=== PATIENT | female | born 1960 | race Caucasian/White ===

== ENCOUNTER 2017-07-20 06:09 | Emergency (ER) | payer OTHER ==
[~2017-07-20] VITALS: Ht 154.9 cm; Wt 49.0 kg
[~2017-07-20 06:09] MED LIST: ALEVE220 M1 PO; ALPRAZOLAM0.5 MG PO; ASPIR-LOW81 MG PO; CEPHALEXIN500 MG PO; CIPROFLOXACIN750 MG PO; IBUPROFEN600 MG PO; LEVAQUIN750 MG PO; NICOTINE PATCH1 EACH TD; NORCO 5-325 TA1 EACH PO; OXYCODONE HCL5 MG PO; PERCOCET 5-3251 EACH PO; SEPTRA DS TABL1 EACH PO
== END 2017-07-20 07:30 | disposition home or self-care (01) ==
LOC: ED 06:09
DX: T15.91XA Foreign body on external eye, part unspecified, right eye, initial encounter (principal); F17.200 Nicotine dependence, unspecified, uncomplicated; Z88.1 Allergy status to other antibiotic agents; Z79.899 Other long term (current) drug therapy; Z90.49 Acquired absence of other specified parts of digestive tract
CPT/HCPCS: 99282

== ENCOUNTER 2017-09-25 15:24 | Emergency (ER) | payer OTHER ==
[~2017-09-25] VITALS: Ht 154.9 cm; Wt 47.9 kg
== END 2017-09-25 15:40 | disposition home or self-care (01) ==
LOC: ED 15:24
DX: K08.89 Other specified disorders of teeth and supporting structures (principal)

== ENCOUNTER 2018-10-28 11:39 | Emergency (ER) | payer OTHER ==
[~2018-10-28] VITALS: Ht 154.9 cm; Wt 52.6 kg
[~2018-10-28 11:39] MED LIST changes: +BAYER CHEWABLE81 MG PO; +MEDROL4 MG PO; +MOBIC15 MG PO; +XANAX1 MG PO
--- OUTSIDE RECORDS SUMMARY | 2018-10-28 11:44 | XMS ---
PreManage Notification: SPENCER DIXON Security Well Flow Operator Events No recent Security Events currently on file CRITERIA MET - RICKY CARE PROVIDERS MARGO Lomas Current PHONE: [phone] orvashti Case or Asphalt Raker Current PHONE: Unknown Karissa Garcia Current PHONE: Unknown Deon has no Care Guidelines for this patient. Adam VISIT COUNT (12 MO.) 2 FISH Blount TOTAL 2 NOTE: Visits indicate total known visits. 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 [place] TYPE: Orthopedic DIAGNOSES: - Unilateral primary osteoarthritis, left hip [id number]
[2018-10-28] MEDS ORDERED: LOVENOX80 MG/0.8 SUB-Q (13:52)
[2018-10-28] MEDS ORDERED: WARFARIN SODIUM10 MG PO (14:17)
== END 2018-10-28 14:14 | disposition home or self-care (01) ==
LOC: ED 11:39
DX: I82.412 Acute embolism and thrombosis of left femoral vein (principal); I82.432 Acute embolism and thrombosis of left popliteal vein; Z87.891 Personal history of nicotine dependence; Z88.1 Allergy status to other antibiotic agents; Z79.82 Long term (current) use of aspirin; Z79.899 Other long term (current) drug therapy
CPT/HCPCS: 85610; 93971; 96372; 99284-25; J1650

== ENCOUNTER 2020-02-22 20:19 | Emergency (ER) | payer OTHER ==
[~2020-02-22] VITALS: Ht 154.9 cm; Wt 52.6 kg
[~2020-02-22 20:19] MED LIST changes: +LOVENOX80 MG/0.8 SUB-Q; +VITAMIN D250000 UNIT PO; +WARFARIN SODIU7.5 MG PO; +WARFARIN SODIUM10 MG PO; +WARFARIN SODIUM5 MG PO
--- OUTSIDE RECORDS SUMMARY | 2020-02-22 20:22 | XMS ---
PreManage Notification: SPENCER ACEVES Security Culinary Intern Events No recent Security Events currently on file CRITERIA MET - JLP CARE PROVIDERS STEPHANIE SANTOS Physician 10/28/2018-Current PHONE: Unknown Geovani Winter Internal Medicine Current PHONE: [phone] Deon has no Care Guidelines for this patient. Adam VISIT COUNT (12 MO.) 1 FISH Blount TOTAL 1 NOTE: Visits indicate total known visits. ED/UCC VISIT TRACKING (12 MO.) 02/22/2020 20:19 [facility] [place] TYPE: Emergency COMPLAINT: - LEG PAIN INPATIENT VISIT TRACKING (12 MO.) No inpatient visits to display in this time frame [email or web address]
[2020-02-22] MEDS ORDERED: EUTHYROX25 MCG PO (22:18)
[2020-02-22] MEDS ORDERED: GABAPENTIN300 MG PO (22:18)
[2020-02-22] MEDS ORDERED: ALENDRONATE SOD70 MG PO (22:19)
== END 2020-02-23 00:20 | disposition home or self-care (01) ==
LOC: ED 20:19
DX: S86.912A Strain of unspecified muscle(s) and tendon(s) at lower leg level, left leg, initial encounter (principal); Z87.891 Personal history of nicotine dependence; Z88.1 Allergy status to other antibiotic agents; Z79.899 Other long term (current) drug therapy; Z79.01 Long term (current) use of anticoagulants; X58.XXXA Exposure to other specified factors, initial encounter
CPT/HCPCS: 73560; 99283-25

== ENCOUNTER 2020-10-06 11:32 | Emergency (ER) | payer MEDICARE, OTHER ==
[~2020-10-06] VITALS: Ht 154.9 cm; Wt 59.0 kg
[~2020-10-06 11:32] MED LIST changes: +ALENDRONATE SOD70 MG PO; +EUTHYROX25 MCG PO; +FUROSEMIDE20 MG PO; +GABAPENTIN300 MG PO
--- OUTSIDE RECORDS SUMMARY | 2020-10-06 11:34 | XMS ---
PreManage Notification: SPENCER DIXON Security Hematology Oncology Consultant Events No recent Security Events currently on file CRITERIA MET - JLP CARE PROVIDERS STEPHANIE SANTOS Physician 10/28/2018-Current PHONE: Unknown Geovani Winter Internal Medicine Current PHONE: [phone] Deon has no Care Guidelines for this patient. Adam VISIT COUNT (12 MO.) 2 FISH Blount TOTAL 2 NOTE: Visits indicate total known visits. 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
[2020-10-06] MEDS ORDERED: OXYCODONE HCL5 MG PO (11:46)
[2020-10-06] MEDS ORDERED: MELOXICAM5 MG PO (11:46)
== END 2020-10-06 13:14 | disposition home or self-care (01) ==
LOC: ED 11:32
DX: Z48.89 Encounter for other specified surgical aftercare (principal); Z79.01 Long term (current) use of anticoagulants; Z87.891 Personal history of nicotine dependence; Z88.1 Allergy status to other antibiotic agents; Z79.899 Other long term (current) drug therapy
CPT/HCPCS: 99283

== ENCOUNTER 2020-11-08 13:50 | Emergency (ER) | payer MEDICARE, OTHER ==
[~2020-11-08] VITALS: Ht 154.9 cm; Wt 59.0 kg
[~2020-11-08 13:50] MED LIST changes: +MELOXICAM5 MG PO
--- OUTSIDE RECORDS SUMMARY | 2020-11-08 13:54 | XMS ---
PreManage Notification: SPENCER DIXON Security Rotary Driller Events No recent Security Events currently on file CRITERIA MET - JLP CARE PROVIDERS STEPHANIE SANTOS Physician 10/28/2018-Current PHONE: Unknown Geovani Winter Internal Medicine Current PHONE: [phone] Deon has no Care Guidelines for this patient. Adam VISIT COUNT (12 MO.) Ebenezer Blount TOTAL 3 NOTE: Visits indicate total known visits. ED/UCC VISIT TRACKING (12 MO.) 11/08/2020 13:51 [facility] TYPE: Emergency COMPLAINT: - RT ELBOW PAIN NON INJURY 10/06/2020 11:32 [facility] TYPE: Emergency COMPLAINT: - LT GROIN PAIN,POST SURGICAL DIAGNOSES: - long-term (current) use of anticoagulants - Personal history of other venous thrombosis and embolism - Other postprocedural complications of skin and subcutaneous tissue - Other termite exterminator (current) drug therapy - Presence of left artificial hip joint - Allergy status to other antibiotic agents - Hemorrhage, not elsewhere classified - Personal history of nicotine dependence - Encounter for other specified surgical aftercare 02/22/2020 20:[address] [facility] [place] TYPE: Emergency COMPLAINT: - LEG PAIN DIAGNOSES: - Pain in left knee - Exposure to other specified factors, initial encounter - Strain of unspecified muscle(s) and tendon(s) at lower leg level, left leg, initial encounter - Other residential (current) drug therapy - exterminator (current) use of anticoagulants - Allergy status to other antibiotic agents - Personal history of nicotine dependence INPATIENT VISIT TRACKING (12 MO.) No inpatient visits to display in this time frame [email or web address]
[2020-11-08] MEDS ORDERED: PREDNISONE20 MG PO (18:16)
[2020-11-08] MEDS ORDERED: OXYCODONE HCL5 MG PO (18:16)
== END 2020-11-08 18:39 | disposition home or self-care (01) ==
LOC: ED 13:50
DX: M25.521 Pain in right elbow (principal); Z87.891 Personal history of nicotine dependence; Z88.1 Allergy status to other antibiotic agents; Z79.899 Other long term (current) drug therapy; Z79.01 Long term (current) use of anticoagulants
CPT/HCPCS: 36415; 73080; 80048; 84550; 85025; 85610; 85651; 96372; 99283-25; J1100; J2270

== ENCOUNTER 2021-01-27 17:13 | Emergency (ER) | payer MEDICARE, OTHER ==
[~2021-01-27] VITALS: Ht 154.9 cm; Wt 59.0 kg
[~2021-01-27 17:13] MED LIST changes: +MELOXICAM15 MG PO; +PREDNISONE20 MG PO
--- OUTSIDE RECORDS SUMMARY | 2021-01-27 17:16 | XMS ---
PreManage Notification: SPENCER DIXON Security Ceramic Engineer Events No recent Security Events currently on file CRITERIA MET - PDMP CARE PROVIDERS STEPHANIE SANTOS Physician Dealer Sales Manager 11/09/2020-Current PHONE: Unknown Geovani Winter Internal Medicine Current PHONE: [phone] Deon has no Care Guidelines for this patient. Care History Medical/Surgical 11/09/2020 [facility] Care Recommendation: - PLEASE REVIEW PDMP - DEON - USE EXTREME CAUTION IN GIVING NARCOTICS. - Avoid Discharge Narcotic prescriptions if at all possible. Physician discretion. E.D. VISIT COUNT (12 MO.) [address] [place] [address] TOTAL 4 NOTE: Visits indicate total known visits. 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 - Personal history of nicotine dependence - Other terminal worker (current) drug therapy - Pain in right elbow 10/06/2020 11:32 [facility] TYPE: Emergency COMPLAINT: - LT GROIN PAIN,POST SURGICAL DIAGNOSES: - bed bug exterminator (current) use of anticoagulants - Personal history of other venous thrombosis and embolism - Other postprocedural complications of skin and subcutaneous tissue - Other half-way (current) drug therapy - Presence of left artificial hip joint - Allergy status to other antibiotic agents - Hemorrhage, not elsewhere classified - Personal history of nicotine dependence - Encounter for other specified surgical aftercare 02/22/2020 20:19 [facility] TYPE: Emergency COMPLAINT: - LEG PAIN DIAGNOSES: - Pain in left knee - Exposure to other specified factors, initial encounter - Strain of unspecified muscle(s) and tendon(s) at lower leg level, left leg, initial encounter - Other terminal worker (current) drug therapy - bed bug exterminator (current) use of anticoagulants - Allergy status to other antibiotic agents - Personal history of nicotine dependence INPATIENT VISIT TRACKING (12 MO.) No inpatient visits to display in this time frame [id number]
[2021-01-27] MEDS ORDERED: OXYCODONE HCL5 MG PO (17:31)
[2021-01-27] MEDS ORDERED: JANTOVEN10 MG PO (19:59)
[2021-01-27] MEDS ORDERED: LOVENOX60 MG SUB-Q (19:59)
--- NOTE | 2021-01-28 07:22 | EKG ---
[facility] [address] [facility] [place] [address] Signed Normal sinus rhythm Anterior infarct , age undetermined T wave abnormality, consider lateral ischemia Abnormal ECG When compared with ECG of 11-NOV-2017 11:20, T wave inversion now evident in Anterolateral leads Confirmed by FLAVIO DURBIN MD ([id number]) on 01/28/2021 7:22:04 AM Electronically Signed By: FLAVIO DURBIN MD 01/28/21 0722 PATIENT NAME: SPENCER DIXON VERONICA Electrocardiogram DATE OF : 62 PHYSICIAN: FLAVIO DURBIN MD REPORT #: [id number] REPORT IS CONFIDENTIAL AND NOT TO BE RELEASED WITHOUT AUTHORIZATION
== END 2021-01-27 20:42 | disposition home or self-care (01) ==
LOC: ED 17:13
DX: I82.4Y2 Acute embolism and thrombosis of unspecified deep veins of left proximal lower extremity (principal); M79.662 Pain in left lower leg; Z87.891 Personal history of nicotine dependence; Z88.1 Allergy status to other antibiotic agents; Z79.899 Other long term (current) drug therapy; Z79.01 Long term (current) use of anticoagulants
CPT/HCPCS: 71045; 80053; 81001; 84484; 85025; 85610; 93005; 93010; 93971; 96372; 99284-25; J1650

== ENCOUNTER 2021-09-21 22:08 | Emergency (ER) | payer MEDICARE, OTHER ==
[~2021-09-21] VITALS: Ht 154.9 cm; Wt 59.6 kg
[~2021-09-21 22:08] MED LIST changes: +JANTOVEN10 MG PO; +LOVENOX60 MG SUB-Q
--- OUTSIDE RECORDS SUMMARY | 2021-09-21 22:10 | XMS ---
PreManage Notification: SPENCER DIXON Security Pie Maker Events No recent Security Events currently on file CRITERIA MET - COVID-19 Positive Lab Results - PDMP - ED - Positive COVID-19 Lab Result - [facility] CARE PROVIDERS STEPHANIE SANTOS Physician Head Waitress Current PHONE: Unknown Geovani Winter Internal Medicine Current PHONE: [phone] Deon has no Care Guidelines for this patient. Care History Medical/Surgical 11/09/2020 [facility] Care Recommendation: - PLEASE REVIEW PDMP - DEON - USE EXTREME CAUTION IN GIVING NARCOTICS. - Avoid Discharge Narcotic prescriptions if at all possible. Physician discretion. E.D. VISIT COUNT (12 MO.) [address] [facility] TOTAL 4 NOTE: Visits indicate total known visits. ED/UCC VISIT TRACKING (12 MO.) 09/21/2021 22:08 [facility] [place] TYPE: Emergency COMPLAINT: - L LEG PAIN 01/27/2021 17:13 [facility] TYPE: Emergency COMPLAINT: - WEAKNESS DIAGNOSES: - Other chcf (current) drug therapy - Pain in left lower leg - Acute embolism and thrombosis of unspecified deep veins of left proximal lower extremity - Allergy status to other antibiotic agents - Personal history of nicotine dependence - Weakness - longterm (current) use of anticoagulants 11/08/2020 13:51 [facility] TYPE: Emergency COMPLAINT: - RT ELBOW PAIN NON INJURY DIAGNOSES: - Allergy status to other antibiotic agents - longterm (current) use of anticoagulants - Personal history of nicotine dependence - Other chcf (current) drug therapy - Pain in right elbow 10/06/2020 11:32 [facility] TYPE: Emergency COMPLAINT: - LT GROIN PAIN,POST SURGICAL DIAGNOSES: - vermin exterminator (current) 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 of anticoagulants - Personal history of other venous thrombosis and embolism - Other postprocedural complications of skin and subcutaneous tissue - Other emt intermediate (current) drug therapy - Presence of left artificial hip joint - Allergy status to other antibiotic agents - Hemorrhage, not elsewhere classified - Personal history of nicotine dependence - Encounter for other specified surgical aftercare INPATIENT VISIT TRACKING (12 MO.) 09/11/2021 08:55 [facility] [place] TYPE: Intermediate Care DIAGNOSES: - Acute embolism and thrombosis of left iliac vein 02/06/2021 08:52 [facility] [place] TYPE: Intermediate Care DIAGNOSES: - Acute embolism and thrombosis of left iliac vein - Procedure and treatment not carried out because of other contraindication - longterm (current) use of anticoagulants [id number]
[2021-09-21] MEDS ORDERED: PROZAC40 MG PO (22:35)
--- NOTE | 2021-09-22 13:55 | EKG ---
[facility] [address] [facility] [place] [address] Signed Normal sinus rhythm Prolonged QT Abnormal ECG When compared with ECG of 27-JAN-2021 17:29, T wave inversion no longer evident in Anterolateral leads Confirmed by LUIZA DO DO ([id number]) on 09/22/2021 1:55:20 PM Electronically Signed By: LUIZA DO DO 09/22/21 1355 PATIENT NAME: SPENCER DIXON VERONICA Electrocardiogram DATE OF : 62 PHYSICIAN: LUIZA DO DO REPORT #: [id number] REPORT IS CONFIDENTIAL AND NOT TO BE RELEASED WITHOUT AUTHORIZATION
== END 2021-09-22 01:56 | disposition home or self-care (01) ==
LOC: ED 22:08
DX: M79.605 Pain in left leg (principal); F15.10 Other stimulant abuse, uncomplicated; R55 Syncope and collapse; Z86.718 Personal history of other venous thrombosis and embolism; Z87.891 Personal history of nicotine dependence; Z88.1 Allergy status to other antibiotic agents; Z79.899 Other long term (current) drug therapy
CPT/HCPCS: 36415; 70450; 71045; 80053; 81001; 85025; 85610; 85730; 93005; 93010; 93926; 93971; 99284-25

== ENCOUNTER 2023-08-23 20:24 | Emergency (ER) | payer MEDICARE, OTHER ==
[~2023-08-23] VITALS: Ht 157.5 cm; Wt 54.0 kg
[~2023-08-23 20:24] MED LIST changes: +PROZAC40 MG PO
[2023-08-23] MEDS ORDERED: DESVENLAFAXINE25 MG PO (20:45)
[2023-08-23] MEDS ORDERED: TERBINAFINE HC250 MG PO (20:45)
[2023-08-23] MEDS ORDERED: XARELTO10 MG PO (20:46)
[2023-08-23 22:18] LABS: INFLUENZA B NAA NEGATIVE (NEGATIVE); RESPIRATORY SYNCYTIAL VIR NAA NEGATIVE (NEGATIVE)
[2023-08-23 22:50] VITALS: BP 149/88
== END 2023-08-23 22:50 | disposition home or self-care (01) ==
LOC: ED 20:24
PROVIDERS: Internal Medicine
DX: K12.0 Recurrent oral aphthae (principal); Z20.822 Contact with and (suspected) exposure to COVID-19; F32.A Depression, unspecified; F41.9 Anxiety disorder, unspecified; Z87.891 Personal history of nicotine dependence; Z88.1 Allergy status to other antibiotic agents; Z79.890 Hormone replacement therapy; Z79.01 Long term (current) use of anticoagulants; Z79.899 Other long term (current) drug therapy
CPT/HCPCS: 87502; U0002

== ENCOUNTER 2024-01-07 10:08 | Emergency (ER) | payer MEDICARE, OTHER ==
[~2024-01-07] VITALS: Ht 157.5 cm; Wt 53.9 kg
[~2024-01-07 10:08] MED LIST changes: +DESVENLAFAXINE25 MG PO; +TERBINAFINE HC250 MG PO; +XARELTO10 MG PO
[2024-01-07] MEDS ORDERED: NICOTINE PATCH1 EACH TD (10:21)
[2024-01-07] MEDS ORDERED: FAMOTIDINE20 MG PO (10:22)
[2024-01-07] MEDS ORDERED: CYCLOBENZAPRINE10 MG PO (10:22)
[2024-01-07] MEDS ORDERED: SODIUM CHLORIDE 0.9% 1,000 ML IV ONE (10:30)
[2024-01-07 10:46] LABS: BASOPHILS 0.9 % (0-2); EOSINOPHILS 1.1 % (0-6); HEMATOCRIT 42.1 % (35.0-50.0); HEMOGLOBIN 13.9 g/dL (12.0-18.0); MCH 30.1 (27-36); MCHC 33.1 g/dl (30-36); MCV 91.1 fl (81-99); MONOCYTES 7.3 % (0-12); NEUTROPHILS 74.7 % (39-80); PLATELET COUNT 315 K/uL (140-440); RBC 4.62 M/ul (4.3-5.7); RDW 14.1 (10.5-15.0)
[2024-01-07 11:06] LABS: ALBUMIN 3.6 g/dL (3.4-5.0); ALBUMIN/GLOBULIN RATIO 1.13 (1.1-2.4); ANION GAP 13.4 (7-21); BILIRUBIN, TOTAL 0.2 ng/dL (0.2-1.0); BUN/CREATININE RATIO 14.47 (6.0-28.6); CREATININE, SERUM 0.76 mg/dL (0.55-1.02); POTASSIUM 4.4 mmol/L (3.5-5.1); PROTEIN, TOTAL 6.8 g/dL (6.4-8.2)
[2024-01-07 11:33] LABS: BILIRUBIN, URINE NEGATIVE (negative); BLOOD/HGB, URINE NEGATIVE (Negative); KETONE, URINE NEGATIVE (Negative); LEUK ESTERASE, URINE NEGATIVE (negative); NITRITE, URINE NEGATIVE (negative)
[2024-01-07 12:14] VITALS: BP 120/107
== END 2024-01-07 12:14 | disposition home or self-care (01) ==
LOC: ED 10:08
PROVIDERS: Emergency Medicine
DX: K41.90 Unilateral femoral hernia, without obstruction or gangrene, not specified as recurrent (principal); N28.89 Other specified disorders of kidney and ureter; E03.9 Hypothyroidism, unspecified; Z79.899 Other long term (current) drug therapy; Z88.1 Allergy status to other antibiotic agents; Z87.891 Personal history of nicotine dependence
CPT/HCPCS: 36415; 74177; 80053; 81003; 83690; 85025; 99283-25; J7030; Q9967

== ENCOUNTER 2025-03-18 19:13 | Emergency (ER) | payer MEDICARE, OTHER ==
[~2025-03-18] VITALS: Ht 157.5 cm; Wt 58.0 kg
[~2025-03-18 19:13] MED LIST changes: +CYCLOBENZAPRINE10 MG PO; +FAMOTIDINE20 MG PO
[2025-03-18] MEDS ORDERED: HYDROmorphone HCL 1 MG/ML SYR IV PRN (21:30)
[2025-03-18] MEDS ORDERED: HYDROCODONE BIT/ACETAMINOPHEN 5/325 MG 1 TAB HOME.PACK PO PRN (23:30)
[2025-03-18] MEDS ORDERED: HYDROCODON-ACE1 EA10 PO (23:32)
[2025-03-18 23:44] VITALS: BP 148/82
== END 2025-03-18 23:44 | disposition home or self-care (01) ==
LOC: ED 19:13
DX: S82.841A Displaced bimalleolar fracture of right lower leg, initial encounter for closed fracture (principal); X50.1XXA Overexertion from prolonged static or awkward postures, initial encounter; Z87.891 Personal history of nicotine dependence; Z88.1 Allergy status to other antibiotic agents; Z79.01 Long term (current) use of anticoagulants; Z79.890 Hormone replacement therapy; Z79.899 Other long term (current) drug therapy
CPT/HCPCS: 27810; 73610; 96374; 96375; 99283-25; A9270; J1171; J2405

== ENCOUNTER 2025-03-21 12:34 | Inpatient (IN) | payer OTHER, MEDICARE ==
[~2025-03-21] VITALS: Ht 157.5 cm; Wt 58.0 kg
[~2025-03-21 12:34] MED LIST changes: +HYDROCODON-ACE1 EA10 PO; +SEVOFLURANE 250 ML BTL INH ONE
[2025-03-21] MEDS ORDERED: XARELTO15 MG PO (14:02)
[2025-03-21 15:09] LABS: BASOPHILS 0.3 % (0.1-1.2); EOSINOPHILS 1.5 % (0.7-5.8); LYMPHOCYTES 19.9 % (19.3-51.7); MCH 29.6 PG (25.6-32.2); MCHC 32.2 g/dL (32.2-35.5); MCV 91.9 fL (79.4-94.8); MONOCYTES 7.5 % (4.7-12.5); NEUTROPHILS 70.4 % (34.0-71.1); RBC 4.46 M/uL (3.93-5.22)
[2025-03-21] MEDS ORDERED: HYDROmorphone HCL 1 MG/ML SYR IV PRN ×2 (15:15→16:15)
[2025-03-21 15:16] LABS: INR 1.0 (0.80-1.30); PROTIME 12.8 Sec (11.2-14.2)
[2025-03-21 15:20] LABS: ALT (SGPT) 24.0 U/L (14-59); AST (SGOT) 15.0 U/L (15-37); GLOMERULAR FILTRATION RATE,EST 79.0 mL/min (>60); PROTEIN, TOTAL 7.0 g/dL (6.4-8.2); UREA NITROGEN 13.0 mg/dL (7-18)
[2025-03-21 16:02] VITALS: BP 140/69
[2025-03-21] MEDS ORDERED: LACTATED RINGER'S 1,000 ML IV SCH (16:15)
[2025-03-21] MEDS ORDERED: OXYCODONE HCL 5 MG TAB PO PRN (16:30)
--- NOTE | 2025-03-21 17:09 | NUR ---
PT ARRIVES TO MED-SURG AT 1550 VIA GURNEY, ESCORTED BY CLINTON Blackman RN, VERBAL REPORT RECEIVED. PT IS A&O X4, TRANSFERRED TO BED WITH DRAW SHEET X3 ASSIST. VSS, PT ON RA. IMMOBILIZER BOOT IN PLACE TO RLE. 4+ PITTING EDEMA NOTED TO RIGHT FOOT, CMS INTACT. LARGE INTACT BLISTERS NOTED AROUND ANKLE. DR. DAVILA INTO SEE PT. PUREWICK PUT IN PLACE TO COLLECTED URINE DUE TO IMMOBILITY. PT ORIENTED TO ROOM, BED AND CALL LIGHT. BED RAILS UP X4, CALL LIGHT IN REACH.
--- NOTE | 2025-03-21 17:26 | NUR ---
IS PROVIDED. EDUCATION ON IS PROVIDED, PT VERBALIZES UNDERSTANDING. ICE PACK APPLIED TO RIGHT ANKLE.
[2025-03-21 18:00] VITALS: BP 127/43
--- NOTE | 2025-03-21 19:21 | NUR ---
REPORT RECEIVED FROM JOLENE DUMAS. PATIENT IN BED WITH HOB RAISED, EYES OPEN, CHEST RISE EVEN AND UNLABORED. FAMILY AT BEDSIDE. CALL LIGHT AND PERSONAL BELONGINGS IN REACH OF PATIENT.
[2025-03-21 19:51] VITALS: BP 119/57
[2025-03-21 19:56] VITALS: BP 119/57
--- NOTE | 2025-03-21 20:08 | NUR ---
PATIENT IN BED WITH HOB RAISED, EYES OPEN, CHEST RISE EVEN AND UNLABORED. ASSESSMENT AND VITAL SIGNS COMPLETED. PATIENT REPORTS 5/10 PAIN. PATIENT REQUESTS PRN PAIN MEDICATION TYLENOL AND NICOTINE PATCH. PATIENT REPORTS SHE JUST STOPPED SMOKING ONE WEEK AGO AND WAS SMOKING 1 PACK PER DAY. PATIENT DENIES FURTHER CONCERNS AT THIS TIME. ICE AND HEEL PROTECTION IN PLACE. IV FLUID INFUSING WITHOUT DIFFICULTY. CALL LIGHT AND PERSONAL BELONGINGS IN REACH OF PATIENT.
--- NOTE | 2025-03-21 20:18 | NUR ---
THIS RN CALLED AND SPOKE WITH MD DAVILA. I REVIEWED PATIENT'S 12/03 PAIN AND REQUEST FOR TYLENOL AND PATIENT'S REQUEST FOR NICOTINE PATCH. I REVIEWED PATIENT REPORTS SMOKING 1 PACK PER DAY UNTIL SHE STOPPED ONE WEEK AGO. i REVIEWED PATIENT'S LAST BM 03/18/25. REPORTS HE WILL PLACE ORDERS FOR TYLENOL AND NICOTINE. DENIES ORDERS FOR BOWEL MOVEMENT AT THIS TIME. NO FURTHER ORDERS OR CONCERNS NOTED.
[2025-03-21] MEDS ORDERED: ACETAMINOPHEN 500 MG TAB PO PRN (23:00)
--- NOTE | 2025-03-21 23:45 | NUR ---
PT C/O 05/05 PAIN TO RIGHT ANKLE, PRN MEDS GIVEN - SEE MAR. PT FLUIDS REMOVED FROM BEDSIDE TABLE, ANKLE BOOK IN PLACE BUT NOT VELCROD. ICE PACK APPLIED TO ANKLE. CALL LIGHT WITHIN REACH.
[2025-03-22] VITALS (14 sets, daily range): BP systolic 100–127; BP diastolic 49–59
--- NOTE | 2025-03-22 00:27 | NUR ---
PATIENT REPORTS 10/10 R ANKLE PAIN. PRN PAIN MEDICATION ADMINISTERED PER PATIETNT REQUEST. CPOX PLACED ON PATIENT. PATIENT NPO AT THIS TIME. FOOD AND DRINK REMOVED OFF OF PATIENT SIDE TABLE. PATIENT EDUCATED ON NPO STATUS. VS AND I&Os OBTAINED AND RECORDED. NO FURTHER NEEDS. CALL LIGHT IN REACH.
--- NOTE | 2025-03-22 00:42 | NUR ---
PATIENT PLACED ON 2L NC AFTER ADMINISTRATION OF PAIN MEDICATION. PATIENT 94% ON 2L NC. NEW PUREWICK PLACED AFTER LYN CARE PROVIDED. PATIENT DENIES FURTHER NEEDS. CALL LIGHT IN REACH. IS USED.
--- NOTE | 2025-03-22 02:01 | NUR ---
PATIENT IN BED, EYES CLOSED, CHEST RISE EVEN AND UNLABORED. PATIENT REPORTS PAIN IMPROVED TO 4/10. PATIENT DENIES FURTHER CONCERNS. CALL LIGHT AND PERSONAL BELONGINGS IN REACH OF PATIENT. CPOX IN PLACE.
--- NOTE | 2025-03-22 02:30 | NUR ---
PATIENT CPOX ALARMING. PATIENT BREATHING THROUGH MOUTH. 2L OXYMASK PLACED ON PATIENT. WARM BLANKET PROVIDED. NO FURTHER NEEDS. CALL LIGHT IN REACH.
--- NOTE | 2025-03-22 04:58 | NUR ---
PATIENT IN BED WITH HOB RAISED, EYES CLOSED, CHEST RISE EVEN AND UNLABORED. NO APPARENT NEEDS NOTED AT THIS TIME.
--- NOTE | 2025-03-22 06:38 | NUR ---
PATIENT CALL LIGHT ANSWERED. PATIENT IN BED. PATIENT REPORTS SEVERE PAIN AND REQUESTING PRN PAIN MEDICATION. PRN PAIN MEDICATION ADMINISTERED, PATIENT DENIES FURTHER CONCERNS
[2025-03-22] MEDS ORDERED: CEFAZOLIN SODIUM 2 GM/20 ML SYR IV SCH (07:00)
--- NOTE | 2025-03-22 07:20 | NUR ---
VERBAL REPORT RECEIVED FROM ALESIA OCHOA. PT RESTS IN BED WITH EYES CLOSED, RESP EVEN AND UNLABORED, CPOX IN PLACE, SPO2 95%.
--- NOTE | 2025-03-22 07:59 | NUR ---
OXYCODONE RECEIVED FOR 10/10 RIGHT ANKLE PAIN. FRESH ICE APPLIED TO RIGHT ANKLE.
--- NOTE | 2025-03-22 08:58 | NUR ---
PATIENT IN BED AT THIS TIME. THIS DAM ATTENDANT ASSISTED PATIENT WITH PRE SURGUCAL [place]IP[place]OWN. CALL LIGHT WITHIN REACH, NO FURTHER NEEDS.
[2025-03-22] MEDS ORDERED: NICOTINE 21 MG/24 HR 1 EA TDSY TD SCH (09:00)
--- NOTE | 2025-03-22 09:00 | NUR ---
PT LEAVES MED-SURG VIA BED TO SURGICAL PROCEDURE.
[2025-03-22] MEDS ORDERED: CEFAZOLIN SODIUM 2 GM/20 ML SYR IV ONE (09:15)
[2025-03-22] MEDS ORDERED: LIDOCAINE HCL 2% 5 ML SDV ONE (09:39)
[2025-03-22] MEDS ORDERED: DEXAMETHASONE SOD PHOS 4 MG/ML VIAL ONE ×2 (09:39→10:13)
[2025-03-22] MEDS ORDERED: MIDAZOLAM HCL 2 MG/2 ML VIAL ONE (09:39)
[2025-03-22] MEDS ORDERED: Ropivacaine HCl 0.5% 30 ML VIAL ONE (09:39)
[2025-03-22] MEDS ORDERED: SODIUM CHLORIDE 0.9% 20 ML IV ONE (09:39)
[2025-03-22] MEDS ORDERED: IBLOOD GLUCOSE TEST STRIP 1 EA TEST VI PRN (11:00)
[2025-03-22] MEDS ORDERED: fentaNYL citrate 50 MCG/ML SDV IV PRN (11:00)
[2025-03-22] MEDS ORDERED: NALOXONE HCL 0.4 MG SYR IV PRN (11:00)
--- NOTE | 2025-03-22 11:20 | NUR ---
In and spoke with Buffy. She is awake and sleepy. Pt currently living in an RV camp trailer at a friends home. She is fixing it up. She does not pay rent. Pt has 4 steps into the RV. She states her daughter lives in town and will assists her. Pt. has an external fixator and will be ttwb. Pt denies money issues, but states it is tight. She denies safety concern. PT will work with this pt later today. Will fu tomorrow for clearer plan.
--- NOTE | 2025-03-22 11:23 | NUR ---
03/22/25 1123 Gina Casey 1053- PT PRESENTS TO PACU, SEMI TESFAYE POSITION REACTIVE TO STIMULUS. O2 AT 6L PER MASK, BREATHING EVEN AND NON LABORED. EXTERNAL FIXATION IN PLACE TO RIGHT ANKLE, SMALL AMOUNT OF BLEEDING NOTED AROUND PIN SITES. LR INFUSING TO RAC IV. ALL MONITORS IN PLACE. 1101- PT MOVED TO ROOM AIR AT THIS TIME, NO PAIN. 1110- PT PLACED TEETH BACK IN MOUTH. CONTINUES TO DENY PAIN. 1113- PT SAT UP IN BED TO LOOK AT SURGICAL SITE. PHONE GIVEN BACK TO PT. 1117- PT DESATS TO 86% WITH RESTING, WAKES EASILY AND FOLLOWS INSTRUCTION TO DEEP BREATH AND COUGH. SATS INCREASE TO 91-93% BUT FALL AGAIN WITH RESTING. O2 PLACED AT 2L PER NC.
--- NOTE | 2025-03-22 11:30 | NUR ---
PT RETURNS TO MED-SURG, RECEIVED BY BAO Jones RN. VSS.
--- NOTE | 2025-03-22 11:51 | NUR ---
PT RESTS IN BED, DROWSY, ROUSES EASILY TO MAIN, A&O X4, ON CPOX, SPO2 98% ON 1.5 LPM. RESP EVEN AND UNLABORED. LUNGS CLEAR, HRR. EXTERNAL FIXATOR IN PLACE TO RLE. GAUZE WRAP IN PLACED. MODERATE AMOUNT OF SEROSANGUINEOUS DRAINAGE NOTED AT PROXIMAL END OF FIXATOR. 3+ EDEMA IN RIGHT FOOT. CMS INTACT TO TOES 2-5. NUMBNESS IN 1ST TOE. PUREWICK IN PLACE, DRAINS CLEAR YELLOW URINE. PT RE-ORIENT TO ROOM, BED AND CALL LIGHT.
--- NOTE | 2025-03-22 12:11 | NUR ---
ICE WATER PROVIDED HEEL ELEVATED.
--- NOTE | 2025-03-22 12:47 | NUR ---
PT DRINKS WATER AND EATS CRACKERS TOLERATES THIS WELL. PT RECEIVES LUNCH TRAY, EATING LUNCH, DENIES NAUSEA AT THIS TIME. CALL LIGHT IN REACH, NO REQUESTS. NO NEW DRAINAGE TO RLE.
--- NOTE | 2025-03-22 13:18 | NUR ---
PT EATS LUNCH, TOLERATES THIS WELL, DENIES NAUSEA. IS AT BEDSIDE ENCOURAGED. HEEL ELEVATED, ICE IN PLACE OVER RIGHT ANKLE, O2 TITRATED DOWN TO 1LPM, CPOX IN PLACE WITH SPO2 97%. NO CHANGED TO DRAINAGE AT ANTRIOR PROXIMAL FIXATOR OR AT THE HEEL. NUMBNESS OF RIGHT 1ST TOE CONTINUES. VSS. CALL LIGHT IN REACH, NO REQUESTS AT THIS TIME.
--- NOTE | 2025-03-22 13:38 | NUR ---
PT MOTHER CALLED AND WANTED AN UPDATE, NOT ON CHART SO I ASKED THE PT IF IT WAS OK. SHE STATED YES AND THAT SHE WOULD LIKE TO TALK TO HER. GAVE MOTHER UPDATE, SHE WAS IRRATE THAT NOONE HAD CALLED HER ALREADY AND THAT SHE DID NOT WANT TO SPEAK WITH HER DTR. , EXPLAINED THAT SHE WAS NOT IN THE CHART SO WE ARE NOT LEGALLY ALLOWED TO DO SO. STILL ANGRY. PT MOTHER THEN HUNG UP. INFORMED PT OF CONVERSATION.
--- NOTE | 2025-03-22 13:50 | NUR ---
UR CLINICAL REVIEW: 2 MN FOR VERSALUS-PER SUPERVISOR TELEVISION CHASSIS REPAIR MEETS OBS FOR FAILE OUTPATIENT MANAGEMENT OF TRIMALLEOLAR FX WITH NEED FOR EXTERNAL FIXATOR MEDICARE INPT ORDER PLACED BY ER MD DISCUSSED WITH ATTENDING MD. PATIENT TO BE OBS STATUS PER DR. DAVILA.ORDER PLACED TO REFLECT CHANGE DISCHARGE TO HOME WHEN CLEARED BY PT 03/23/25
--- NOTE | 2025-03-22 14:43 | NUR ---
PT RESTING IN BED WITH FOOT ELEVATED ON PILLOW. VS ASSESSED, WNL.
--- NOTE | 2025-03-22 15:15 | NUR ---
PT SITS UP AT EDGE OF BED WITH PHYSICAL THERAPY AND THEN GOES BACK TO BED. INCREASED SEROSANGUINEOUS DRAINAGE NOTED AT FIXATOR ON HEEL. PT RESTS IN BED, RESP EVEN AND UNLABORED. SPO2 94% ON .0.5 LPM. PT ALERT AND ORIENTED X4. DENIES NAUSEA, REPORTS PAIN TOLERABLE. NUMBNESS REMAINS IN RIGHT 1ST TOE. 750 MLS OF CLEAR YELLOW URINE OUT. CALL LIGHT IN REACH.
--- NOTE | 2025-03-22 15:43 | NUR ---
VERBAL REPORT PROVIDED TO ALESIA WILLIS.
--- NOTE | 2025-03-22 15:52 | NUR ---
Reviewed PT notes and are recommending a SNF.
--- NOTE | 2025-03-22 16:00 | NUR ---
RECIEVED REPORT FROM ALESIA FERNÁNDEZ. PT LYING IN BED RESTING WITH EYES CLOSED. EXTERNAL FIXATION REMAINS IN PLACE WITH ICE APPLIED. NO NEW DRAINAGE ON DRESSING PER ALESIA FERNÁNDEZ. CALL LIGHT WITHIN REACH.
[2025-03-22] MEDS ORDERED: DEXTROAMP-AMPHE10 MG PO (16:08)
--- NOTE | 2025-03-22 17:11 | OR ---
[facility] [address], [place] [address] Signed DATE OF OPERATION: 03/22/2025 SURGEON: Mckenzie Her MD PREOPERATIVE DIAGNOSIS: Fracture dislocation, trimalleolar right ankle. POSTOPERATIVE DIAGNOSIS: Fracture dislocation, trimalleolar right ankle. PROCEDURE PERFORMED: Closed reduction and external fixation, right ankle. TYPER: None. ANESTHESIA: General. BLOOD LOSS: Minimal. IMPLANTS: Yessenia large XX. BRIEF HISTORY: Buffy is a 65-year-old female who suffered a ground level fall creating a trimalleolar fracture dislocation of the ankle. This was reduced while I was in town. She was placed in a fracture boot and returned to the ER yesterday with severe pain. Radiographs show the fracture to be subluxed laterally. We admitted her overnight for pain control and surgery today. Risks and benefits of operative treatment with the external fixator was discussed with her. External fixator was necessary because of five large fracture blisters around the ankle brief occluding any type of incisional approaches. She understood and wished to proceed. DESCRIPTION OF PROCEDURE: Once consent was obtained she was taken to the operating room. After adequate anesthesia she was placed on operating table. All downside pressure points were well padded. The leg was prepped and draped in a standard sterile fashion. The fracture was closed, reduced with some difficulty. We then placed two 5 mm pins in the proximal mid Electronically Signed By: MCKENZIE HER MD 03/22/25 1711 PATIENT NAME: MC BUFFY CELESTIN OPERATIVE REPORT DATE OF : 62 REPORT #: [id number] PHYSICIAN: MCKENZIE HER MD PCP: STEPHANIE SANTOS PAC REPORT IS CONFIDENTIAL AND NOT TO BE RELEASED WITHOUT AUTHORIZATION [facility] [address], [place] [address] Signed tibia percutaneously. Bicortical purchase was obtained. The calcaneal pin was placed transversely through a stab incision medially and laterally and the centrally threaded pin was used. The pins proximally and the calcaneal pin were then connected using the carbon fiber rods. Once an adequate reduction was obtained both in the AP and sagittal planes, the bar clamps were tightened. This was further adjusted slightly after letting the soft tissue tension released. Once the reduction was adequately obtained, the pin clamps were all tightened. The calcaneal pin was cut on both sized to reduce the size. The kickstand was then clamped to the bars posteriorly to raise the heel off the bed. The pin sites were all cleaned and dressed with Allevyn dressing. MediHoney dressings were placed over the blisters and two Kerlix wraps were applied. She was then awakened, taken to the recovery room in satisfactory condition. All sponge, needle, and instrument counts were correct. Mckenzie Her MD BA/ALFREDA /[id number] Copies: ~ Electronically Signed By: MCKENZIE HER MD 03/22/25 1711 PATIENT NAME: BUFFY ACEVES OPERATIVE REPORT DATE OF : 62 REPORT #: [id number] PHYSICIAN: MCKENZIE HER MD PCP: STEPHANIE SANTOS PAC REPORT IS CONFIDENTIAL AND NOT TO BE RELEASED WITHOUT AUTHORIZATION
--- NOTE | 2025-03-22 18:56 | NUR ---
PUREWICK CHANGED. NOTED BRIEF IS WET WITH URINE. LYN-CARE PROVIDED. JUANITO PEREZ. PT TOLERATED WELL.
--- NOTE | 2025-03-22 19:10 | NUR ---
REPORT RECEIVED FROM LAZARO DUMAS. pt RESTING IN THE BED. RLE BANDAGE ASSESSED. MODERATE DRAINAGE ON FRONT OF DRESSING AND ON HEAL OF DRESSING, OTHERWISE DRY AND INTACT. pt DENIES ANY OTHER NEEDS AT THIS TIME. pt UNABLE TO MOVE TOES AT THIS TIME. CALL LIGHT WITHIN REACH.
--- NOTE | 2025-03-22 20:48 | NUR ---
SCHOOL PSYCHOLOGY PROFESSOR OBTAINED VITALS AND I&O PT STATES NO NEEDS AT THIS TIME. CALL LIGHT WITHIN REACH.
[2025-03-22] MEDS ORDERED: SENNOSIDES 1 TAB PO SCH (21:00)
--- NOTE | 2025-03-22 21:20 | NUR ---
ASSESSMENT AND VITAL SIGNS DONE. pt DENIES ANY PAIN AT THIS TIME. pt HAS MODERATE AMOUNT OF DRAINAGE ON BOTTOM OF HEAL OF DRESSING AND AROUND THE TOP OF THE DRESSING. NO NEW DRAINAGE AT THIS TIME. DRESSING REINFORCED. CHUCKS AND ABD PAD WEIGHED FOR 55.8 mL OF SS DRAINAGE. PEDAL PULSES FAINT ON RLE AND RLE WARM TO TOUCH. pt SENSATION INTACT. NEW PUREWICK IN PLACE. BRIEF CHANGED. SCHEDULED MEDS ADMINISTERED. pt DENIES ANY OTHER NEEDS AT THIS TIME. CALL LIGHT WITHIN REACH.
--- NOTE | 2025-03-22 21:28 | NUR ---
Dr Her notified via phone about pts increased sanguineous discharge from external fixator around upper insertion site and at heel. lower Kerlix dressing at heel saturated and ABD at heel saturated and moderate amount discharge spilled over into pad. Notified that this RN and primary RN will be weighing this chux and pads per nursing judgement. stated, " no need to call, just reinforce". Primary RN notified. MD to assess in am
--- NOTE | 2025-03-22 23:15 | NUR ---
pt RESTING IN THE BED WITH EYES CLOSED. RR EVEN AND UNLABORED. CALL LIGHT WITHIN REACH.
[2025-03-23] VITALS (10 sets, daily range): BP systolic 108–153; BP diastolic 51–91
--- NOTE | 2025-03-23 01:40 | NUR ---
IN RM TO DO pt VITAL SIGNS AND ASSESSMENT DONE. pt RLE HAS NO NEW DRAINAGE. PEDAL PULSES STRONG ON RLE. CMS INTACT. pt DENIES ANY OTHER NEEDS AT THIS TIME. CALL LIGHT WITHIN REACH.
--- NOTE | 2025-03-23 02:59 | NUR ---
pt CALLED AND STATED SHE WAS WET. THIS RN CHANGED PURE WICK AND BRIEF. pt DENIES ANY PAIN RIGHT NOW. WARM BLANKET PROVIDED. WATER REFRESHED. CRACKERS PROVIDED. pt DENIES ANY OTHER NEEDS AT THIS TIME. CALL LIGHT WITHIN REACH.
--- NOTE | 2025-03-23 04:30 | NUR ---
pt IV ALARMING. NEW BAG OF IVF INFUSING PER ORDER. ICE PACE PLACED ON RLE. NO OTHER NEEDS AT THIS TIME. CALL LIGHT WITHIN REACH.
--- NOTE | 2025-03-23 05:48 | NUR ---
AVIONICS SYSTEMS ENGINEER OBTAINED VITALS AND I&O. PUREWICK CANNISTER EMPTIED. PT STATES NO NEEDS AT THIS TIME. CALL LIGHT WITHIN REACH.
--- NOTE | 2025-03-23 07:10 | NUR ---
RECIEVED REPORT FROM ALESIA ALCANTAR. PT RESTING IN BED WITH EYES CLOSED, BREATHING EVEN AND UNLABORED. CALL LIGHT WITHIN REACH.
--- NOTE | 2025-03-23 08:31 | NUR ---
Patient is in bed at this time, PJ Fatima and I assisted the patient in a linen change, put a pillow and adama under her foot so the leakage/blood wouldnt soak the bed again. I also changed patients purewick, and got her a new breif. Got a warm blanket, coffee, and patient pulled up in bed for breakfast. Call light with in reach and nothing else needed at this time.
--- NOTE | 2025-03-23 09:07 | NUR ---
PATIENT IS IN HER BED AT THIS TIME, MANAGER IN TRAINING CHARTED VITALS AND I&O'S, EMPTIED PUREWICK CANISTER, PATIENT SAYS SHE IS STILL IN PAIN, ALESIA WILLIS NOTIFIED. CALL LIGHT WITH IN REACH AND NOTING ELSE NEEDED AT THIS TIME.
[2025-03-23] MEDS ORDERED: FOSAMAX70 MG PO (09:20)
[2025-03-23] MEDS ORDERED: VITAMIN D31250 MC1 PO (09:20)
--- NOTE | 2025-03-23 09:21 | NUR ---
MED REC COMPLETE
--- NOTE | 2025-03-23 10:35 | NUR ---
Spoke with Buffy. She is alert and awake today. Discussed plan for when pt goes home. She is now stating she can stay in the house instead of the RV. She is concerned how she will care for herself. We discussed SNFs and pt does say she would consider [facility] as her friend works there. I let her know I will need to discuss with Dr. Her as he would need to order. I contacted Dr. Her and he plans on patient staying a few days. Discussed this maybe a pt that could be a swingbed if needed. I will discuss with pt tomorrow. She will need a 3 night IP stay starting from tonight.
[2025-03-23] MEDS ORDERED: VENLAFAXINE HCL 37.5 MG PO SCH (12:16)
--- NOTE | 2025-03-23 12:45 | NUR ---
PATIENT WAS IN HER CHAIR AT THIS TIME, SHE NEEDED ASSISTANCE TO THE BEDSIDE COMMODE AND BACK TO BED. ADMISSIONS SUPERVISOR GOT HER A WARM BLANKET, A PILLOW, AND SOME FRESH ICE WATER. CALL LIGHT WITH IN REACH AND NOTHING ELSE NEEDED AT THIS TIME.
--- NOTE | 2025-03-23 13:24 | NUR ---
SPOKE WITH RUPERT CHAIDEZ, REGARDING PATIENT STATUS. ORDER TO CHANGE TO INPATIENT.
--- NOTE | 2025-03-23 13:25 | NUR ---
UR CLINICAL REVIEW: 2 MN AMOS, MEETS INPT FOR BIMALLEOLAR FRACTURE, RIGHT SURGICAL INTERVENTION REQUIRED, PT/OT, PAIN MANAGEMENT. MEDICARE INPT 03/23/2025 @ 8686 ORDER MATCHES REG NO AUTH REQUIRED PER MEDICARE RULES DC PLAN PENDING FURTHER EVAL, HOME VS SNF.
--- NOTE | 2025-03-23 18:24 | EKG ---
[facility] [address] [place], [place] [address] Signed Normal sinus rhythm Normal ECG Confirmed by Chava Mcintyre DO ([id number]) on 03/23/2025 6:24:13 PM Electronically Signed By: CHAVA MCINTYRE DO 03/23/25 1824 PATIENT NAME: REMA CELESTINSPENCER Electrocardiogram DATE OF : 62 PHYSICIAN: CHAVA MCINTYRE DO REPORT #: [id number] REPORT IS CONFIDENTIAL AND NOT TO BE RELEASED WITHOUT AUTHORIZATION
--- NOTE | 2025-03-23 18:38 | NUR ---
PATIENT IS IN BED AT THIS TIME, BAND SCROLL SAW OPERATOR CHARTED VITALS AND I&O'S, OFFERED A BED BATH, PATIENT REFUSED AND SAID MAYBE TOMORROW. CALL LIGHT WITH IN REACH AND NOTHING ELSE NEEDED AT THIS TIME.
--- NOTE | 2025-03-23 19:29 | NUR ---
RECEIVED REPORT FROM ALESIA WILLIS AND ALESIA HODGSON. PT IN BED, FRIEND AT BED SIDE. RIGHT LEG ELEVATED WITH PILLOW. DENIES NEEDS AT THIS TIME. CALL LIGHT IN REACH.
--- NOTE | 2025-03-23 19:48 | NUR ---
CALL LIGHT ANSWERED. PT NEEDED TO USE BATHROOM. RELASTER SBA WITH FWW TO BSC. PT VOIDED AND ASSISTED BACK TO BED. PT STATES NO FURTHER NEEDS AT THIS TIME. CALL LIGHT WITHIN REACH.
--- NOTE | 2025-03-23 21:08 | NUR ---
PT RESTING IN BED. VITAL SIGNS TAKEN AND RECORDED. INTAKE AND OUTPUT RECORDED. C/O 02/02 PAIN, PRN MEDICATION GIVEN. DRESSING REINFORCED. DENIES FURTHER NEEDS. CALL LIGHT IN REACH.
--- NOTE | 2025-03-23 21:42 | NUR ---
CALL LIGHT ANSWERED, pt UP WITH FWW TO BSC AND VOIDED 400MLS. pt NWB TO RLE, STEADY WITH FWW. BACK IN BED, BELONGINGS AND CALL LIGHT IN REACH, pt DENEIS ADDITIONAL NEEDS.
--- NOTE | 2025-03-23 23:25 | NUR ---
PT LAYING IN BED, STILL C/O OF 7/10 PAIN ON HER R ANKLE. PRN PAIN MEDICATION GIVEN ORDERED. DENIES FURTHER NEEDS. CALL LIGHT IN REACH.
[2025-03-24] VITALS (9 sets, daily range): BP systolic 125–145; BP diastolic 52–73
--- NOTE | 2025-03-24 00:32 | NUR ---
PATIENT REPORTING INCREASED PAIN FOLLOWING GETTING UP TO RESTROOM, ICE PACK PROVIDED AT THIS TIME. RESPIRATIONS EVEN AND UNLABORED, NO FURTHER NEEDS AT THIS TIME, CALL LIGHT IN REACH
--- NOTE | 2025-03-24 01:17 | NUR ---
PT AWAKE IN BED, C/O 04/05 PAIN ON RLE, PRN PAIN MEDICATION GIVEN PER PT REQUEST. DENIES FURTHER NEEDS. CALL LIGHT IN REACH.
--- NOTE | 2025-03-24 01:56 | NUR ---
PT SLEEPIN IN BED, RESPIRATIONS EVEN AND UNLABORED. NO NEEDS NOTED AT THIS TIME. CALL LIGHT IN REACH.
--- NOTE | 2025-03-24 03:50 | NUR ---
PT IN BED, STILL C/O OF PAIN BUT PAIN DOWN TO 7/10 AFTER A DOSE OF OXYCODONE. ICE PACK APPLIED, HELPED REPOSITIONED THE LEG. DENIES OTHER NEEDS, CALL LIGHT IN NEED.
--- NOTE | 2025-03-24 04:11 | NUR ---
CALL LIGHT ANSWERED. PT NEEDED TO USE BATHROOM. ICT SYSTEMS TEST ENGINEER SBA WITH FWW TO BSC. PT VOIDED AND ASSISTED BACK TO BED. VITALS AND I&O OBTAINED. PT STATES NO FURTHER NEEDS AT THIS TIME. CALL LIGHT WITHIN REACH.
--- NOTE | 2025-03-24 05:12 | NUR ---
PT IN AWAKE IN BED, C/O 10/10 PAIN, PRN MEDS GIVEN ORDERED. DENIES FURTHER NEEDS. CALL LIGHT IN REACH.
--- NOTE | 2025-03-24 07:03 | NUR ---
DR. DAVILA ROUNDED ON PATIENT. INFORMED PROVIDER ABOUT PATIENT POOR PAIN CONTROL THROUGHOUT THE NIGHT. PROVIDER STATES THAT THE ORDERED PAIN MEDICATION SHOULD BE ENOUGH FOR THE PATIENT TODAY, AND HER PAIN HAS INCREASED DUE TO THE NERVE BLOCK WEARING OFF. NO NEW ORDERS.
--- NOTE | 2025-03-24 07:42 | NUR ---
PT RESTING IN BED WITH EYES CLOSED AND RESPIRATIONS EVEN AND UNLABORED. CALL LIGHT WITHIN REACH. REPORT RECEIVED FROM MARCO DUMAS.
--- NOTE | 2025-03-24 08:14 | NUR ---
PATIENT IN BED AT THIS TIME. THIS BULB PACKER ASSISTED PATIENT TO BEDSIDE COMMODE AND THEN BACK TO THE BED. PATIENT STATED THAT SHE WAS IN PAIN, RN DAVID NOTIFIED. CALL LIGHT WITHIN REACH, NO FURTHER NEEDS AT THIS TIME.
[2025-03-24] MEDS ORDERED: LEVOTHYROXINE SODIUM 25 MCG TAB PO SCH (09:00)
[2025-03-24] MEDS ORDERED: FAMOTIDINE 20 MG TAB PO SCH (09:00)
--- NOTE | 2025-03-24 10:45 | NUR ---
Spoke with Buffy. She denies needs. Does not feel she will be able to care forself at home. Pt stating she will be staying for 2 weeks. We did discuss SNF placement as I explained yesterday, Swing Beds are not always available. Per PT pt will need a walker. Will notify Dr. Her and request an RX.
--- NOTE | 2025-03-24 10:48 | NUR ---
PT NOT AVAILABLE FOR VISIT. PROVIDED PRAYER.
--- NOTE | 2025-03-24 11:35 | NUR ---
PHYSICAL THERAPY IN TO WORK WITH PT. PT SITTING IN CHAIR WITH LEGS ELEVATED. TYLENOL GIVEN ORDERED FOR PAIN 03/05/ CALL LIGHT WITHIN REACH AND CHAIR ALARM ON.
--- NOTE | 2025-03-24 13:30 | NUR ---
PT ASSISTED IN USING THE BEDSIDE COMMODE WITH WALKER. PT TOLERATED WELL, KEPT RLE NON WT BEARING. PT BACK TO CHAIR WITH LEGS ELEVATED AND CALL LIGHT WITHIN REACH. PT STATES PAIN IS TOLERABLE AT THIS TIME. EXTERNAL FIXATOR IN PLACE WITH DRSG AROUND INSERTION SITES WITH MOD AMT OF OLD DRAINAGE TO UPPER DRSG AND UNDER HEEL, SEROSANGUANOUS.
--- NOTE | 2025-03-24 16:35 | NUR ---
PT RESTING IN BED WITH MOTHER AT BEDSIDE. COFFEE GIVEN PT REQUESTED. NO OTHER REQUESTS AT THIS TIME. CALL LIGHT WITHIN REACH
--- NOTE | 2025-03-24 17:30 | NUR ---
PT SITTING UP IN BED EATING DINNER. PT DECLINED TO SIT IN CHAIR AT THIS TIME SINCE SHE HAS BEEN SITTING UP IN CHAIR THIS AFTERNOON. MOTHER AT BEDSIDE VISITING AND CALL LIGHT WITHIN REACH.
--- NOTE | 2025-03-24 19:32 | NUR ---
PT RESTING IN BED, STILL REPORTS SOME PAIN ON HER RLE. DENIES NEED AT THE MOMENT. CALL LIGHT IN REACH.
--- NOTE | 2025-03-24 22:52 | NUR ---
PT RESTING IN BED. VITAL SIGNS TAKEN AND RECORDED. INTAKE OUTPUT RECORDED. DUE MEDS AND PRN PAIN MEDS GIVEN. IV DRESSING CHANGED. DENIES FURTHER NEEDS. CALL LIGHT IN REACH.
--- NOTE | 2025-03-24 23:26 | NUR ---
PT SLEEPIN IN BED. RESPIRATIONS EVEN AND UNLABORED. NO NEEDS NOTED AT THIS TIME. CALL LIGHT IN REACH.
[2025-03-25] VITALS (10 sets, daily range): BP systolic 119–134; BP diastolic 45–70
--- NOTE | 2025-03-25 00:23 | NUR ---
ASSISTED PT TO THE BSC. PT DID WELL DOING STAND-PIVOT TO THE COMMODE, TOLERATED WELL. DENIES FURTHER NEEDS. CALL LIGHT IN REACH.
--- NOTE | 2025-03-25 02:02 | NUR ---
ROUNDED ON PATIENT, PATIENT RESTING WITH EYES CLOSED, RESPIRATIONS EVEN AND UNLABORED. NO NEEDS IDENTIFIED, CALL LIGHT IN REACH
--- NOTE | 2025-03-25 03:07 | NUR ---
ASSITED PT TO BSC, STAND-PIVOT WITH FWW X1PA, TOLERATED WELL. PROVIDED WARM BLANKET FOR COMFORT. DENIES FURTHER NEEDS. CALL LIGHT IN REACH.
--- NOTE | 2025-03-25 05:53 | NUR ---
WIRER MAINTENANCE OBTAINED VITALS AND I&O. PT SBA WITH FWW TO BSC. PT VOIDED AND ASSISTED BACK TO BED. PT STATES NO FURTHER NEEDS AT THIS TIME. MARICRUZ LIGHT WITHIN REAC H.
--- NOTE | 2025-03-25 06:12 | NUR ---
PT AWAKE, RESTING IN BED. REPORTS 7/10 PAIN, PRN PAIN MEDICATIONS GIVEN PER PT REQUEST. DENIES FURTHER NEEDS AT THE MOMENT. CALL LIGHT IN REACH.
--- NOTE | 2025-03-25 07:21 | NUR ---
REPORT RECEIVED FROM MARCO Rubio RN
--- NOTE | 2025-03-25 08:30 | NUR ---
PT RESTING IN BED, NO REQUESTS AT THIS TIME. STATES PAIN IS TOLERABLE. CALL LIGHT WITHIN REACH.
--- NOTE | 2025-03-25 10:30 | NUR ---
PT READING HER BOOK, NO REQUESTS AT THIS TIME. CALL LIGHT WITHIN REACH.
--- NOTE | 2025-03-25 12:42 | NUR ---
PT UP IN THE CHAIR, JUST FINISHED LUNCH. CALL LIGHT WITHIN REACH.
--- NOTE | 2025-03-25 14:46 | NUR ---
PT RESTING IN CHAIR WITH EYES CLOSED AND RESPIRATIONS EVEN AND UNLABORED. CALL LIGHT WITHIN REACH AND LEGS ELEVATED.
--- NOTE | 2025-03-25 15:44 | NUR ---
PT C/O PAIN 03/05 TO R LE. PT SITTING UP IN CHAIR WITH R LEG ELEVATED ON PILLOWS. PT MEDICATED WITH OXYCODONE AND TYLENOL. PT OFFERED ICE PACK AND DECLINED AT THIS TIME. PT INSTRUCTED TO CALL FOR ASSISTANCE PRN. CHAIR RECLINED AND LOCKED, CALL ALBA IN REACH.
--- NOTE | 2025-03-25 17:19 | NUR ---
PT SITTING UP IN CHAIR WITH LEGS ELEVATED EATING DINNER. NO REQUESTS AT THIS TIME. CALL LIGHT WITHIN REACH.
--- NOTE | 2025-03-25 20:06 | NUR ---
Pt used call light. in chair, legs elevated. external fixator in place with old drainage. 1PA/FWW NWB/TTWB R leg. edematous foot, pulses palpable. Up to BROP with help, voided QS clear yellow urine. tolerated very well. Back to bed. leg elevated. SL patent LH. On room air, no c/o pain at this time. Repositioned self in bed, watching tv.
--- NOTE | 2025-03-25 23:18 | NUR ---
Assisted Pt 1PA FWW pivoting PRN. from bed to bathroom and back. Boosted R leg up with pillows x3. No other needs expressed by Pt. Call light left in reach. Bed adjusted.
--- NOTE | 2025-03-25 23:30 | NUR ---
Used call light, up to BRP, 1PA/FWW hopping, voided, back to bed, tolerated well. c/o R leg pain, medicated with Oxycodone 10mg and Tylenol . R external Fixator in place, old drainage to drassing. edema to R foot improving. moving toes well. elevated with pillows.
[2025-03-26] VITALS (9 sets, daily range): BP systolic 123–146; BP diastolic 59–72
--- NOTE | 2025-03-26 01:12 | NUR ---
resting, eyes closed, no s/sx distress, R leg external fixator in place, elevated with pillows.
--- NOTE | 2025-03-26 05:57 | NUR ---
Pt used call light, up to BRP, voided, back to bed 1PA/FWW, back to bed R leg elevated with pillows, good CMS, decreased edema at foot. Dressing R leg external fixator in place with old drainage. No c/o pain at this time. Pleasant and cooperative.
--- NOTE | 2025-03-26 07:48 | NUR ---
PT AWAKE WATCHING TV AT TIME OF SHIFT REPORT. FRESH H20 AND CALL LIGHT AT BEDSIDE. PT DENIES OTHER NEEDS.
--- NOTE | 2025-03-26 09:56 | NUR ---
PT COMPLETES BREAKFAST IN BED. UP TO TOILET THEN MOVES TO THE CHAIR RLE ELEVATED ON PILLOWS. PT DOES WELL USING FWW AND FOLLOWING PRECAUTIONS. PT AGREES PAIN MED WAS EFFECTIVE DENIES FURTHER NEEDS. CALL LIGHT AND NEEDED ITEMS IN REACH
--- NOTE | 2025-03-26 12:06 | NUR ---
PT WORKS WITH P/T AGREES IT WENT WELL. SITTING UP IN THE CHAIR READING AT THIS TIME
--- NOTE | 2025-03-26 13:04 | NUR ---
PT SITTING UP IN RECLINER WITH NOON MEAL. DENIES NEEDS OF
--- NOTE | 2025-03-26 13:28 | NUR ---
PATIENT IS SITTING IN THE CHAIR. PATIENTS VITAL SIGNS AND I&OS WERE DONE. PATIENTS CALL LIGHT IS WITHIN REACH AND NO FURTHER NEEDS AT THIS TIME
--- NOTE | 2025-03-26 14:51 | NUR ---
PT CONTINUES UP IN THE CHAIR RLE ELEVATED ON PILLOWS, PT IS RESTING EYES CLOSED.
--- NOTE | 2025-03-26 16:49 | NUR ---
PT UP TO THE TOILET ABLE TO MOVE A SMALL AMOUNT OF STOOL, RETURNS TO THE CHAIR WHERE SHE SITS READING
--- NOTE | 2025-03-26 17:53 | NUR ---
PT UP IN THE CHAIR EATING EVENING MEAL DENIES NEED OF OTHER ITEMS
--- NOTE | 2025-03-26 17:56 | NUR ---
PATIENT SITTING UP IN CHAIR WITH LEGS ELEVATED AT THIS TIME. VISITORS IN ROOM. VITALS AND I&O'S DONE AND CHARTED. PATIENT REQUESTING PAIN MEDS FOR 7 OUT OF 10 PAIN IN R LEG, RN NOTIFIED. CALL LIGHT IN REACH. NO FURTHER NEEDS AT THIS TIME.
--- NOTE | 2025-03-26 19:25 | NUR ---
REPORT RECEIVED FROM ALESIA BABCOCK. PATIENT RESTING IN BED COMFORTABLY, SHE DENIES ANY NEEDS. RESPIRATIONS EVEN AND UNLABORED, SHE REPORTS TOLERABLE PAIN. CALL LIGHT IN REACH.
--- NOTE | 2025-03-26 20:22 | NUR ---
VS OBTAINED AND RECORDED, PATIENT RESTING IN BED COMFORTABLY, REPORTS HER PAIN HAS IMPROVED AND IS NOW 6/10 AND MORE TOLERABLE. SCHEDULED MEDICATIONS ADMINISTERED PER ORDER, ASSESSMENT COMPLETE. NO NEW DRAINAGE ON RLE DRESSING. PATIENT DENIES FURTHER NEEDS, CALL LIGHT IN REACH.
--- NOTE | 2025-03-26 22:58 | NUR ---
ROUNDED ON PATIENT, PATIENT RESTING ON LEFT SIDE, RESPIRATIONS EVEN AND UNLABORED, NO NEEDS IDENTIFIED, CALL LIGHT IN REACH
[2025-03-27] VITALS (8 sets, daily range): BP systolic 101–145; BP diastolic 50–74
--- NOTE | 2025-03-27 00:16 | NUR ---
ROUNDED ON PATIENT, PATIENT RESTING WITH EYES CLOSED, RESPIRATIONS EVEN AND UNLABORED. NO NEEDS IDENTIFIED, CALL LIGHT IN REACH
--- NOTE | 2025-03-27 02:42 | NUR ---
ROUNDED ON PATIENT, PATIENT RESTING WITH EYES CLOSED, RESPIRATIONS EVEN AND UNLABORED. NO NEEDS IDENTIFIED, CALL LIGHT IN REACH
--- NOTE | 2025-03-27 04:34 | NUR ---
ROUNDED ON PATIENT, PATIENT IS RESTING WITH EYES CLOSED ON HER LEFT SIDE, RESPIRATIONS EVEN AND UNLABORED. NO NEEDS IDENTIFIED, CALL LIGHT IN REACH
--- NOTE | 2025-03-27 05:06 | NUR ---
CALL LIGHT ANSWERED BY PILE HEADER, PATIENT UP TO RESTROOM AND BACK TO BED WITHOUT DIFFICULTY. MSK ASSESSMENT COMPLETE, PATIENT REPORTS N/T IN HER TOES BUT OTHERWISE SENSATION INTACT. PRN PAIN MEDICATION ADMINISTERED PER REQUEST. NO OTHER NEEDS, CALL LIGHT IN REACH
--- NOTE | 2025-03-27 06:51 | NUR ---
ROUNDED ON PATIENT, PATIENT RESTING WITH EYES CLOSED, RESPIRATIONS EVEN AND UNLABORED. NO NEEDS IDENTIFIED, CALL LIGHT IN REACH
--- NOTE | 2025-03-27 07:13 | NUR ---
PT RESTING EYES CLOSED AT TIME OF SHIFT REPORT, LEFT UNDISTURBED. RLE ELEVATED ON PILLOWS CALL LIGHT IN REACH.
--- NOTE | 2025-03-27 08:36 | NUR ---
PT SITTING UP IN BED EATING MORNING MEAL. AGREES OXY ADMINISTERED EARLIER WAS EFFECTIVE AND SHE IS COMFORTABLE. DENIES FURTHER NEEDS AT THIS TIME
--- NOTE | 2025-03-27 09:22 | NUR ---
PT UP TO THE CHAIR AFTER MORNING MEAL RLE ELVATED APPROPRIATELY. CALL LIGHT IN REACH
--- NOTE | 2025-03-27 10:24 | NUR ---
PT CONTINUES UP IN THE CHAIR READING A BOOK LISTENING TO THE TV DENIES NEEDS AT THIS TIME
--- NOTE | 2025-03-27 12:46 | NUR ---
PT TO THE TOILET THEN TO THE RECLINER WITH NOON MEAL. MENU AND INSTRUCTIONS PROVIDED FOR OTHER MEALS
--- NOTE | 2025-03-27 13:58 | NUR ---
NOON MEAL WELL TOLERATED PT RESTING IN THE RECLINER WATCHING TV
--- NOTE | 2025-03-27 16:00 | NUR ---
PT UP TO TOILET THEN BACK TO THE CHAIR. BOOKS PROVIDED FROM [employer], OFFERED TO TAKE PT THERE TO PICK HER OWN SHE DECLINED BUT AGREES IF THESE BOOKS DON'T SUIT HER SHE WILL GO TOMORROW
--- NOTE | 2025-03-27 17:53 | NUR ---
PT EATS MOST OF EVENING MEAL REMAINS SITTING UP IN BED WATCHING TV DENIES NEEDS OF
--- NOTE | 2025-03-27 19:59 | NUR ---
Sitting up in chair, on room air, denies c/o pain at this time, reading and watching tv. Legs elevated, external fixator in place. old drainge around dressing no changes. edema to R foot improving.
--- NOTE | 2025-03-27 20:15 | NUR ---
PATIENT CALLED TO USE THE RESTROOM. SBA FROM CHAIR TO BATHROOM TO BED. PATIENT USED WALKER. PATIENT TOLERATED WELL. V/S AND I&O'S COMPLETED AND CHARTED. NO FURTHER NEEDS EXPRESSED. CALL LIGHT WITHIN REACH.
--- NOTE | 2025-03-27 21:54 | NUR ---
USED CALL LIGHT, UP TO BRP, VOIDED, BACK TO BED 1PA/FWW. C/O 02/02 R LEG PAIN, MEDICATED WITH TYLENOL 1000MG AND OXYCODONE 10MG PO. R LEG EXTERNAL FIXATOR IN PLACE, GOOD CMS TO R FOOT, STATED "JUST TINGLING, BUT BETTER" EDEMATOUS, DRESSING WITH OLD DRAINAGE IN PLACE, ELEVATED WITH PILLOWS. SL LA SLUGGISH BUT PATENT. TOLERATING LIQUIDS WELL, WATCHING TV AND READING A BOOK
--- NOTE | 2025-03-27 23:24 | NUR ---
RESTING, EYES CLOSED, NO S/SX DISTRESS R LEG ELEVATED WITH PILLOWS
[2025-03-28] VITALS (10 sets, daily range): BP systolic 116–129; BP diastolic 55–88
--- NOTE | 2025-03-28 00:19 | NUR ---
PATIENT UP TO THE BATHROOM SBA AND BACK TO BED. DENIES OTHER NEEDS.
--- NOTE | 2025-03-28 01:08 | NUR ---
resting, eyes closed, r leg elevated in pillows, no s/sx distress
--- NOTE | 2025-03-28 03:02 | NUR ---
Resting, eyes closed, no s/sx distress, R leg elevated with pillows
--- NOTE | 2025-03-28 06:38 | NUR ---
Pt used call light, up to BRP 1PA/FWW, voided and had a formed bm. BAck to bed, toleratd well. c/o R leg pain, medicated with Tylenol 1000mg and 5mg Oxycodone. Dressing with old drainage around external fixator insertion are and back towards heel. still c/o mild tingling, edema resolving R foot Elevated with pillows
--- NOTE | 2025-03-28 07:46 | NUR ---
MORNING REPORT RECIEVED FROM ALESIA GREENE. PT LAYING IN BED, PT DENIES PAIN, AND HAS ALREADY SEEN MD DAVILA THIS MORNING. PT HAS NO CONCERNS AND HAS CALL LIGHT IN REACH.
--- NOTE | 2025-03-28 10:47 | NUR ---
PT SITTING UP IN BED, PT IS CURRENTLY GIVING SELF A BED BATH AND HAS NO CURRENT CONCERNS AT THIS TIME CALL LIGHT IN REACH.
--- NOTE | 2025-03-28 11:25 | NUR ---
BED BATH SUPPLIES PROVIDED WELL A CLEAN [place]. PATIENT BATHED INDEPENDENTLY WITH SOME HELP WITH THEIR HAIR AND WIPING THEIR BACK. PATIENT COMBED THEIR HAIR AND WASHED THEIR FACE. ORAL CARE DONE WITH OT. BED LINENS CHANGED. RIGHT FOOT IS ELEVATED AND CHAIR ALARM SET. CALL LIGHT AND PERSONAL ITEMS ARE WITHIN REACH.
--- NOTE | 2025-03-28 11:32 | NUR ---
PT REQUESTED PAIN MEDICATION FOR RF, PT WAS GIVEN (5MG OF PRN OXY) (SEE EMAR) AND TOLERATED WELL, WILL CHECK OF PT PAIN SHORTY. PT HAS CALL LIGHT IN REACH
--- NOTE | 2025-03-28 13:20 | NUR ---
Spoke with Buffy. She cont. to feel she will not be able to care for self. She states her ramp is not built at this time and she cannot get into the friends home. We discussed nonemergent lift assist. She again does not feel she will be able to care for self. I called [facility] and they do have a female bed open. I also called Deann at [facility].They do not have any beds this week. I then notified Dr. Her and he is in agreement for pt to go to a SNF. Chart faxed to Dixie at [facility] as they have a bed open for a female in our area. Pt. is agreement.
--- NOTE | 2025-03-28 14:38 | NUR ---
PT SITTING UP IN CHAIR AT THIS ITME, PT ASKED FOR PAIN MEDICATION AND WAS GIVEN PRN MED (SEE EMAR). PT HAS NO OTHER CONCERNS AND HAS CALL LIGHT IN REACH.
--- NOTE | 2025-03-28 14:44 | NUR ---
Friend in to visit where pt is living. He is agreeable to transport this pt to [facility] at 1 pm tomorrow. I left a message Dixie at [facility]. Orders printed and left for Dr. Her at the dictation station.
--- NOTE | 2025-03-28 15:44 | NUR ---
PT SITTING UP IN CHAIR, PT HAS PAIN 5/10 PT GIVEN PRN OXY (SEE EMAR). PT HAS NO OTHER CONCERNS, CALL LIGHT IN REACH AT THIS TIME.
--- NOTE | 2025-03-28 17:38 | NUR ---
PT SITTING UP IN CHAIR AT THIS TIME, PT DENIES PAIN ABD HAS CALL LIGHT IN REACH. PT EATING DINNER AND TOLERATING WELL.
--- NOTE | 2025-03-28 18:03 | NUR ---
PT SITTING UP IN BED, PT DENIES ANY NEEDS AND HAS MINIMAL PAIN DENIES INTERVENTIONS CALL LIGHT IN REACH AT THIS TIME IF NEEDED.
--- NOTE | 2025-03-28 19:41 | NUR ---
REPORT RECEIVED FROM DAY SHIFT RN. PT SITTING IN RECLINER ALERT AND ORIENTED. DENIES NEEDS. WHITE BOARD UPDATED. CALL LIGHT IN REACH.
--- NOTE | 2025-03-28 21:27 | NUR ---
EVENING ASSESSMENT COMPLETE. SCHEDULED MEDS ADMIN PER EMAR. PT REPORTS RLE/SHOULDER PAIN 04/05. PRN FOR PAIN ADMIN PER EMAR. DENIES NAUSEA. RLE ELEVATED ON PILLOWS IN RECLINER. EXTERNAL FIXATOR IN PLACE. OLD DRAINAGE NOTED ON DRESSING. PT REPORTS N/T IN RLE. BRISK CAP REFILL NOTED. STRONG PEDAL PULSES FELT BILAT. IV IN LEFT HAND LEAKING. IV DC'D WNL. TIP INTACT. PT DENIES QUESTIONS OR CONCERNS. CALL LIGHT IN REACH.
--- NOTE | 2025-03-28 22:15 | NUR ---
PATIENT CALLED TO USE THE RESTROOM. SBA USING WALKER FROM CHAIR TO BATHROOM TO BED. RLE ELEVATED WITH 3 PILLOWS. WARM BLANKET PROVIDED. NO OTHER REQUEST THIS TIME. CALL LIGHT AND SIDE TABLE WITHIN REACH.
--- NOTE | 2025-03-29 00:15 | NUR ---
PT LYING ON LEFT SIDE WITH EYES CLOSED. RLE ELEVATED ON PILLOWS. RESPIRATIONS EVEN. CALL LIGHT IN REACH.
--- NOTE | 2025-03-29 01:26 | NUR ---
PT RESTING IN BED WITH EYES CLOSED. RESPIRATIONS EVEN. CALL LIGHT IN REACH.
--- NOTE | 2025-03-29 03:54 | NUR ---
PT LYING IN BED RESTING WITH EYES CLOSED. RESPIRATIONS EVEN. CALL LIGHT IN REACH.
[2025-03-29 04:23] VITALS: BP 143/62
[2025-03-29 04:25] VITALS: BP 143/62
--- NOTE | 2025-03-29 04:26 | NUR ---
PT UP TO BR WITH RADIO ANNOUNCER ASSIST. BACK TO BED. RLE ELEVATED ON PILLOWS. PT REPORTS RLE PAIN 04/05. PRN FOR PAIN ADMIN PER EMAR. ASSESSMENT UNCHANGED. VS AND I&O OBTAINED. PT DENIES FURTHER NEEDS. CALL LIGHT IN REACH.
--- NOTE | 2025-03-29 06:09 | NUR ---
PT IN BED RESTING WITH EYES CLOSED. RESPIRATIONS EVEN. CALL LIGHT IN REACH.
[2025-03-29 09:04] VITALS: BP 119/51
[2025-03-29 09:06] VITALS: BP 119/51
[2025-03-29] MEDS ORDERED: OXYCODONE HCL5 M1 PO (10:37)
--- NOTE | 2025-03-29 10:47 | NUR ---
DR. DAVILA IN TO TAKE LEFT LOWER EXTREMITY DRESSING OFF. LINDY AND 4/4 LYNNE TO BLISTERS, COVERED WITH KERLEX. PATIENT TO HAVE DAILY PIN CARE WITH 1/2 STRENGTH PEROXIDE.
--- NOTE | 2025-03-29 10:57 | NUR ---
ORDERS, PASRR AND DC SUMMARY FAXED TO [facility].
--- NOTE | 2025-03-29 11:02 | NUR ---
FIXATOR PIN SITES CLEANSED WITH PEROXIDE PER DR. DAVILA ORDER. ADMIN OXYCODONE 10MG AND TYLENOL 1000MG PO FOR REPORTED 9/10 RLE PAIN. PT JUST WORKED WITH PHYSICAL THERAPY.
--- NOTE | 2025-03-29 11:17 | NUR ---
PT NOT AVAILABLE FOR VISIT. PROVIDED PRAYER.
--- NOTE | 2025-03-29 12:13 | NUR ---
Report called to [facility]. all questions answered.
[2025-03-30] MEDS ORDERED: ALENDRONATE SODIUM 70 MG TABLET PO SCH (09:00)
== END 2025-03-29 12:55 | DRG 494 ==
LOC: ED 12:34 → MS 12:35 → ED 15:38 → MS 15:38 → ED 03-22 13:43 → MS 03-22 13:43
PROVIDERS: Emergency Medicine; ADMIT Specialist; ATTEND Specialist
PROC: 3E03329 Introduction of Other Anti-infective into Peripheral Vein, Percutaneous Approach (ICD-10-PCS; 2025-03-22)
PROC: 0QSG34Z Reposition Right Tibia with Internal Fixation Device, Percutaneous Approach (ICD-10-PCS; principal; 2025-03-22 11:00)
DX: S82.851A Displaced trimalleolar fracture of right lower leg, initial encounter for closed fracture (principal); F41.9 Anxiety disorder, unspecified; F32.A Depression, unspecified; I10 Essential (primary) hypertension; M19.90 Unspecified osteoarthritis, unspecified site; K21.9 Gastro-esophageal reflux disease without esophagitis; M81.0 Age-related osteoporosis without current pathological fracture; E03.9 Hypothyroidism, unspecified; Z88.1 Allergy status to other antibiotic agents; Z79.01 Long term (current) use of anticoagulants; Z86.718 Personal history of other venous thrombosis and embolism; Z87.891 Personal history of nicotine dependence; Z86.711 Personal history of pulmonary embolism; W01.0XXA Fall on same level from slipping, tripping and stumbling without subsequent striking against object, initial encounter; Z79.890 Hormone replacement therapy; Z79.83 Long term (current) use of bisphosphonates
CPT/HCPCS: 01462; 36415; 71045; 73600; 73610; 80053; 85025; 85610; 93005; 93010; 94762; 94799; 96374; 96375; 97110; 97161; 97166; 97530; 97535; 99284-25; A9270; C1713; G0378; J0690; J1100; J1171; J2003; J2250; J2405; J2704; J2795; J7121

== ENCOUNTER 2025-04-17 10:21 | Day surgery (SDC) | payer MEDICARE, OTHER ==
[~2025-04-17] VITALS: Ht 157.5 cm; Wt 58.0 kg
[~2025-04-17 10:21] MED LIST changes: +CEFAZOLIN SODIUM 2 GM in SODIUM CHLORIDE 0.9% 100 ML IV SCH; +DEXTROAMP-AMPHE10 MG PO; +EFFEXOR XR37.5 MG PO; +FOSAMAX70 MG PO; +IBLOOD GLUCOSE TEST STRIP 1 EA TEST VI PRN; +LACTATED RINGER'S 1,000 ML IV SCH; +LIDOCAINE HCL 1% 5 ML SDV INJ ONE; +NICODERM CQ1 EAC1 TD; +OXYCODONE HCL5 M1 PO; -SEVOFLURANE 250 ML BTL INH ONE; +TRANEXAMIC ACID IN NACL,ISO-OS 1,000 MG/100 ML PIGGYBACK IV SCH; +TYLENOL325 MG PO; +VITAMIN D31250 MC1 PO; +XARELTO15 MG PO
[2025-04-17] MEDS ORDERED: TRANEXAMIC ACID IN NACL,ISO-OS 100 ML IV ONE ×2 (10:22→10:23)
[2025-04-17] MEDS ORDERED: SODIUM CHLORIDE 0.9% 20 ML IV ONE (10:36)
[2025-04-17] MEDS ORDERED: Ropivacaine HCl 0.5% 30 ML VIAL ONE (10:36)
[2025-04-17] MEDS ORDERED: DEXAMETHASONE SOD PHOS 4 MG/ML VIAL ONE ×2 (10:36→11:37)
[2025-04-17] MEDS ORDERED: LIDOCAINE HCL 2% 5 ML SDV ONE ×2 (10:36→11:21)
[2025-04-17 10:40] VITALS: BP 135/65
--- NOTE | 2025-04-17 10:47 | NUR ---
ARRIVED PER VAN NO ONE WAITING.
--- NOTE | 2025-04-17 11:09 | NUR ---
director case in to do block and talk with pt.
[2025-04-17] MEDS ORDERED: fentaNYL citrate 100 MCG/2 ML VIAL ONE (11:21)
[2025-04-17] MEDS ORDERED: NALOXONE HCL 0.4 MG SYR IV PRN (12:00)
[2025-04-17] MEDS ORDERED: IBLOOD GLUCOSE TEST STRIP 1 EA TEST VI PRN (12:00)
[2025-04-17] MEDS ORDERED: fentaNYL citrate 50 MCG/ML SDV IV PRN (12:00)
[2025-04-17] MEDS ORDERED: HYDROmorphone HCL 1 MG/ML SYR IV PRN (12:00)
[2025-04-17] MEDS ORDERED: HYDROCODONE/ACETA 7.5/325 TAB PO PRN (12:30)
[2025-04-17] MEDS ORDERED: CEFUROXIME500 MG PO (12:34)
[2025-04-17] MEDS ORDERED: HYDROCODON-ACE1 EA11 PO (12:34)
--- NOTE | 2025-04-17 12:35 | NUR ---
04/17/25 1235 [place] HOB IS ELEVATED. PATIENT DENIES PAIN. SHE FOLLOWS INSTRUCTIONS TO LIFT HEAD OFF PILLOW. SURGICAL BONNET AND OXYGEN MASK ARE REMOVED.
[2025-04-17] MEDS ORDERED: SEVOFLURANE 250 ML BTL INH ONE (13:05)
[2025-04-17 13:10] VITALS: BP 143/63
--- NOTE | 2025-04-17 13:33 | NUR ---
ASIM MASSEY REQUEST PAIN PILL AND GIVEN RATES PAIN 5/10.
[2025-04-17 14:04] VITALS: BP 128/60
--- NOTE | 2025-04-17 14:23 | NUR ---
UP TO BSC VOIDS 250 DARK URINE. WANTS TO GO. DAUGHTER HERE. WC VAN CALLED. WANTS TO SIT IN LOBBY WITH DAUGHTER TO WAIT.
--- NOTE | 2025-04-17 14:24 | NUR ---
DC INSTRUCTIONS EXPLAINED AND COMPUTER HANDOUTS REVIEWED. PICTURES GIVEN AND SCRIPT ALSO HARDWARE RETURNED TO PT IN BELONGING BAG. RATES PAIN 3/10 AFTER PAIN PILL. TO WC.
--- NOTE | 2025-04-21 06:55 | OR ---
[facility] [address] [place], [place] [address] Signed DATE OF OPERATION: 04/17/2025 SURGEON: Mckenzie Her MD PREOPERATIVE DIAGNOSIS: Fracture dislocation, left ankle, status post external fixator. POSTOPERATIVE DIAGNOSIS: Fracture dislocation, left ankle, status post external fixator. PROCEDURE PERFORMED: Open reduction and internal fixation of left bimalleolar ankle fracture. 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 ANESTHESIA: General. BLOOD LOSS: None. TOURNIQUET TIME: 42 minutes. IMPLANTS: Six-hole 1/3rd tubular plate with six screws, two 50 mm headless screws medially. BRIEF HISTORY: Buffy is a 65-year-old female, who suffered a ground level fall with a fracture and dislocation of her ankle that did not remain reduced. She had extensive swelling and large blisters all the way around her ankle. It was felt to be unsafe to proceed with open reduction and internal fixation, so she was reduced and placed in an external fixator. Skin was allowed to heal. Once it healed sufficiently, risks and benefits of operative treatment were discussed with her and she elected to proceed. DESCRIPTION OF PROCEDURE: Once consent was obtained, she was taken to the operating room. After adequate anesthesia, she was placed on the operating table with a hip bump and a well-padded proximal thigh tourniquet. The external fixator was removed and the pins were left in Electronically Signed By: MCKENZIE HER MD 04/21/25 0655 PATIENT NAME: BUFFY ACEVES CHAMBERS OPERATIVE REPORT DATE OF : 62 REPORT #: [id number] PHYSICIAN: MCKENZIE HER MD PCP: STEPHANIE SANTOS PAC REPORT IS CONFIDENTIAL AND NOT TO BE RELEASED WITHOUT AUTHORIZATION [facility] [address], [place] [address] The leg was then prepped and draped in the standard sterile fashion. The pins were then removed. Once this was completed, the lateral side of the ankle was approached through a standard lateral incision, carried through the skin and subcutaneous tissue. Skin flaps were developed anteriorly and posteriorly. The fracture was identified and was partially healed. The bone was extremely soft and with careful reduction, we were able to maneuver the ankle joint back into position a little better. The 6-hole plate was then fashioned to the lateral aspect of the ankle and was held with two screws. Position and screw lengths were checked and found to be good. The remainder of the screw holes were drilled and appropriate length screws were placed. This was then copiously irrigated, closed with 2-0 Monocryl and ruben. Attention was then turned to the medial side. A longitudinal medial incision was carried through the skin and subcutaneous tissue and again the subperiosteal flaps were developed. The fracture was again mobilized and reduced as best we could. Again, with the soft bone, this was somewhat difficult. The guide pins for the 4-0 headless screw system were then introduced under image intensifier guidance. The two screws were drilled and appropriate length screws were placed. Moderately good compression was obtained. Final radiograph showed good reduction and placement of the screws and plate. The wound was again copiously irrigated with normal saline and closed with 2-0 Monocryl and ruben. All wounds were dressed with Allevyn and an Marquise wrap. She tolerated the procedure well. All sponge, needle, and instrument counts were correct. Mckenzie Her MD BA/RICL /[id number] Copies: ~ Electronically Signed By: MCKENZIE HER MD 04/21/25 0655 PATIENT NAME: BUFFY ACEVES OPERATIVE REPORT DATE OF : 62 REPORT #: [id number] PHYSICIAN: MCKENZIE HER MD PCP: STEPHANIE SANTOS PAC REPORT IS CONFIDENTIAL AND NOT TO BE RELEASED WITHOUT AUTHORIZATION
== END 2025-04-17 14:40 | disposition home or self-care (01) ==
LOC: DS 10:21
PROVIDERS: ATTEND Specialist
PROC: 0QSH04Z Reposition Left Tibia with Internal Fixation Device, Open Approach (ICD-10-PCS; 2025-04-17)
PROC: 0QSK04Z Reposition Left Fibula with Internal Fixation Device, Open Approach (ICD-10-PCS; principal; 2025-04-17 13:00)
DX: S82.842A Displaced bimalleolar fracture of left lower leg, initial encounter for closed fracture (principal); W18.30XA Fall on same level, unspecified, initial encounter; Z87.891 Personal history of nicotine dependence; Z88.5 Allergy status to narcotic agent; Z88.8 Allergy status to other drugs, medicaments and biological substances; G89.18 Other acute postprocedural pain
CPT/HCPCS: 01480; 64447; 64450; 73600; A9270; C1713; J0688; J1100; J2003; J2405; J2704; J2795; J3010; J7121